=== PATIENT | female | born 2000 | race Caucasian/White ===

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

== ENCOUNTER → 2022-01-03 | Outpatient (CLI) | payer OTHER, MEDICAID, SELFPAY ==
[2022-01-03 12:34] LABS: Absolute Lymphocyte Count 2.61 X10^3/uL (0.83-4.51); Absolute Neutrophil Count 3.5 X10^3/uL (2.0-7.7); Basophil# 0.04 X10^3/uL; Basophil% 0.6 % (0-1); Eosinophil# 0.06 X10^3/uL; Eosinophils% 0.9 % (0-5); Hematocrit 35.8 % (37-47); Hemoglobin 11.8 g/dL (12.0-15.0); Lymphocyte # 2.61 X10^3/ul (0.83-4.51); Lymphocyte % 38.3 % (19-41); Mean Corpuscular Hgb 29.6 pg (27.0-32.0); Mean Corpuscular Volume 89.7 fL (81-99); Mean Platelet Vol. 10.1 fl (6.2-12.0); Monocyte% 8.8 % (0-10); NRBC Flagged by Analyzer 0 % (0-5); Neutrophil # 3.47 X10^3/uL (2.7-7.7); Platelet Count 306 K/mm3 (150-450); RBC Distribution Width CV 13.2 % (11.6-14.6); RBC Distribution Width SD 43.2 fl (35.1-43.9); Red Blood Count 3.99 M/mm3 (4.2-5.4); White Blood Count 6.8 K/mm3 (4.4-11.0)
[2022-01-03 13:03] LABS: Vitamin D,25 Hydroxy 23.3 ng/mL
[2022-01-03 13:04] LABS: Valproic Acid (Depakene) Level 17 ug/mL (50-100)
[2022-01-03 13:09] LABS: AST(SGOT) 16 U/L (15-37); Alanine Aminotransfer ALT/SGPT 37 U/L (13-56); Albumin, Serum 3.8 g/dL (3.2-5.0); Alkaline Phosphatase 90 U/L (45-117); Anion Gap 6 (5-15); BUN 11 mg/dL (7-18); BUN/Creat Ratio 14.1 RATIO (10-20); Bilirubin, Direct 0.12 mg/dL (0.00-0.30); Calcium,Total 8.5 mg/dL (8.5-10.1); Chloride 105 mmol/L (98-107); Cholesterol 188 mg/dL (200); Creatinine, Serum 0.78 mg/dL (0.55-1.02); EST Glomerular Filtration Rate 101 mL/min (>60); Est Glom Filt Rate - Afr Amer 122 mL/min (>60); Free T3 3.2 pg/mL (2.18-3.98); Globulin 3.9 g/dL (2.2-4.2); Glucose 80 mg/dL (74-106); High Density Lipoprotein 52 mg/dL; Potassium 3.1 mmol/L (3.5-5.1); Protein, Total 7.7 g/dL (6.4-8.2); Sodium Level 137 mmol/L (136-145); T4 Free Direct 0.95 ng/dL (0.76-1.46); Thyroid Stim Hormone (TSH) 6.03 uIU/mL (0.358-3.74); Triglycerides 94 mg/dL; Very Low Density Lipoprotein 19 mg/dL (5-40)
[2022-01-12 18:16] LABS: T3 Reverse 15.6 ng/dL (9.2-24.1)
== END | disposition home or self-care (01) ==
LOC: MTLAB 09:39
PROVIDERS: PCP Pediatrics; Referring Provider Psychiatry & Neurology Psychiatry; Visit Provider Psychiatry & Neurology Psychiatry
DX: F31.75 Bipolar disorder, in partial remission, most recent episode depressed (principal); Z79.899 Other long term (current) drug therapy
CPT/HCPCS: 36415; 80053; 80061; 80164; 82248; 82306; 84439; 84443; 84481; 84482; 85025

== ENCOUNTER → 2022-01-16 | Outpatient (CLI) | payer OTHER, MEDICAID, SELFPAY ==
[2022-01-16 18:15] LABS: Absolute Lymphocyte Count 1.51 X10^3/uL (0.83-4.51); Absolute Neutrophil Count 2.9 X10^3/uL (2.0-7.7); Basophil# 0.02 X10^3/uL; Basophil% 0.4 % (0-1); Eosinophil# 0.03 X10^3/uL; Eosinophils% 0.6 % (0-5); Hematocrit 35.9 % (37-47); Lymphocyte # 1.51 X10^3/ul (0.83-4.51); Lymphocyte % 31.1 % (19-41); Mean Corp Hgb Conc 33.4 g/dL (32-36); Mean Corpuscular Volume 89.8 fL (81-99); Mean Platelet Vol. 11.1 fl (6.2-12.0); Monocyte# 0.34 X10^3/uL; NRBC Flagged by Analyzer 0 % (0-5); Neutrophil # 2.94 X10^3/uL (2.7-7.7); Neutrophil % 60.7 % (47-70); Platelet Count 273 K/mm3 (150-450); RBC Distribution Width SD 42.8 fl (35.1-43.9); White Blood Count 4.9 K/mm3 (4.4-11.0)
[2022-01-16 18:35] LABS: Valproic Acid (Depakene) Level 46 ug/mL (50-100)
[2022-01-16 18:36] LABS: Vitamin D,25 Hydroxy 32.6 ng/mL
[2022-01-16 18:39] LABS: AST(SGOT) 13 U/L (15-37); Alanine Aminotransfer ALT/SGPT 13 U/L (13-56); Albumin, Serum 3.7 g/dL (3.2-5.0); Alkaline Phosphatase 77 U/L (45-117); Anion Gap 7 (5-15); BUN 9 mg/dL (7-18); BUN/Creat Ratio 12.5 RATIO (10-20); Bilirubin, Direct 0.12 mg/dL (0.00-0.30); Calcium,Total 8.7 mg/dL (8.5-10.1); Chloride 108 mmol/L (98-107); Cholesterol 159 mg/dL (200); Creatinine, Serum 0.72 mg/dL (0.55-1.02); EST Glomerular Filtration Rate 111 mL/min (>60); Est Glom Filt Rate - Afr Amer 134 mL/min (>60); Free T3 2.8 pg/mL (2.18-3.98); Globulin 3.7 g/dL (2.2-4.2); Glucose 82 mg/dL (74-106); High Density Lipoprotein 39 mg/dL; Protein, Total 7.4 g/dL (6.4-8.2); Sodium Level 139 mmol/L (136-145); T4 Free Direct 0.88 ng/dL (0.76-1.46); Thyroid Stim Hormone (TSH) 0.89 uIU/mL (0.358-3.74); Triglycerides 97 mg/dL; Very Low Density Lipoprotein 19 mg/dL (5-40)
== END | disposition home or self-care (01) ==
LOC: MTLAB 15:17
PROVIDERS: PCP Pediatrics; Referring Provider Psychiatry & Neurology Psychiatry; Visit Provider Psychiatry & Neurology Psychiatry
DX: Z79.899 Other long term (current) drug therapy (principal)
CPT/HCPCS: 36415; 80053; 80061; 80164; 82248; 82306; 84439; 84443; 84481; 84482; 85025

== ENCOUNTER → 2022-02-14 | Outpatient (CLI) | payer OTHER, MEDICAID, SELFPAY ==
[2022-02-14 18:13] LABS: Absolute Lymphocyte Count 1.78 X10^3/uL (0.83-4.51); Absolute Neutrophil Count 5.5 X10^3/uL (2.0-7.7); Basophil# 0.03 X10^3/uL; Basophil% 0.4 % (0-1); Eosinophil# 0.02 X10^3/uL; Eosinophils% 0.3 % (0-5); Hematocrit 37.7 % (37-47); Hemoglobin 12.9 g/dL (12.0-15.0); Lymphocyte # 1.78 X10^3/ul (0.83-4.51); Lymphocyte % 22.6 % (19-41); Mean Corp Hgb Conc 34.2 g/dL (32-36); Mean Corpuscular Hgb 30.5 pg (27.0-32.0); Mean Corpuscular Volume 89.1 fL (81-99); Mean Platelet Vol. 11.4 fl (6.2-12.0); Monocyte# 0.51 X10^3/uL; Monocyte% 6.5 % (0-10); NRBC Flagged by Analyzer 0 % (0-5); Neutrophil # 5.51 X10^3/uL (2.7-7.7); Neutrophil % 69.8 % (47-70); Platelet Count 250 K/mm3 (150-450); RBC Distribution Width CV 12.9 % (11.6-14.6); RBC Distribution Width SD 42.3 fl (35.1-43.9); Red Blood Count 4.23 M/mm3 (4.2-5.4); White Blood Count 7.9 K/mm3 (4.4-11.0)
[2022-02-14 18:57] LABS: ALB/GLOB Ratio 1.1 RATIO (0.9-2.4); AST(SGOT) 10 U/L (15-37); Alanine Aminotransfer ALT/SGPT 16 U/L (13-56); Albumin, Serum 4.3 g/dL (3.2-5.0); Alkaline Phosphatase 72 U/L (45-117); Anion Gap 7 (5-15); BUN 14 mg/dL (7-18); BUN/Creat Ratio 18.3 RATIO (10-20); Bilirubin, Direct 0.15 mg/dL (0.00-0.30); Calcium,Total 9.1 mg/dL (8.5-10.1); Chloride 106 mmol/L (98-107); Cholesterol 134 mg/dL (200); Creatinine, Serum 0.77 mg/dL (0.55-1.02); EST Glomerular Filtration Rate 103 mL/min (>60); Est Glom Filt Rate - Afr Amer 124 mL/min (>60); Free T3 3.5 pg/mL (2.18-3.98); Globulin 3.9 g/dL (2.2-4.2); Glucose 87 mg/dL (74-106); High Density Lipoprotein 41 mg/dL; Potassium 3.6 mmol/L (3.5-5.1); Protein, Total 8.2 g/dL (6.4-8.2); Sodium Level 136 mmol/L (136-145); T4 Free Direct 1.14 ng/dL (0.76-1.46); Thyroid Stim Hormone (TSH) 1.05 uIU/mL (0.358-3.74); Triglycerides 47 mg/dL; Very Low Density Lipoprotein 9 mg/dL (5-40)
[2022-02-14 19:00] LABS: Valproic Acid (Depakene) Level 54 ug/mL (50-100)
[2022-02-20 10:46] LABS: T3 Reverse 20.9 ng/dL (9.2-24.1)
== END | disposition home or self-care (01) ==
PROVIDERS: PCP Pediatrics; Referring Provider Psychiatry & Neurology Psychiatry; Visit Provider Psychiatry & Neurology Psychiatry
DX: F31.76 Bipolar disorder, in full remission, most recent episode depressed (principal); Z79.899 Other long term (current) drug therapy
CPT/HCPCS: 36415; 80053; 80061; 80164; 82248; 82306; 84439; 84443; 84481; 84482; 85025

== ENCOUNTER → 2022-03-21 | Outpatient (CLI) | payer OTHER, MEDICAID, SELFPAY ==
[2022-03-21 17:47] LABS: Absolute Lymphocyte Count 1.41 X10^3/uL (0.83-4.51); Absolute Neutrophil Count 3.5 X10^3/uL (2.0-7.7); Basophil# 0.02 X10^3/uL; Basophil% 0.4 % (0-1); Eosinophil# 0.03 X10^3/uL; Eosinophils% 0.6 % (0-5); Hematocrit 39.1 % (37-47); Hemoglobin 13.3 g/dL (12.0-15.0); Lymphocyte # 1.41 X10^3/ul (0.83-4.51); Lymphocyte % 26.1 % (19-41); Mean Corpuscular Hgb 30.6 pg (27.0-32.0); Mean Corpuscular Volume 89.9 fL (81-99); Mean Platelet Vol. 11.9 fl (6.2-12.0); Monocyte% 7.4 % (0-10); NRBC Flagged by Analyzer 0 % (0-5); Neutrophil # 3.52 X10^3/uL (2.7-7.7); Neutrophil % 65.1 % (47-70); Platelet Count 238 K/mm3 (150-450); RBC Distribution Width CV 13.2 % (11.6-14.6); RBC Distribution Width SD 43.3 fl (35.1-43.9); Red Blood Count 4.35 M/mm3 (4.2-5.4); White Blood Count 5.4 K/mm3 (4.4-11.0)
[2022-03-21 18:10] LABS: Valproic Acid (Depakene) Level 94 ug/mL (50-100); Vitamin D,25 Hydroxy 27.4 ng/mL
[2022-03-21 18:18] LABS: ALB/GLOB Ratio 0.9 RATIO (0.9-2.4); AST(SGOT) 8 U/L (15-37); Alanine Aminotransfer ALT/SGPT 13 U/L (13-56); Albumin, Serum 3.9 g/dL (3.2-5.0); Alkaline Phosphatase 66 U/L (45-117); Anion Gap 9 (5-15); BUN 12 mg/dL (7-18); BUN/Creat Ratio 16.4 RATIO (10-20); Bilirubin, Direct 0.17 mg/dL (0.00-0.30); Calcium,Total 8.7 mg/dL (8.5-10.1); Chloride 105 mmol/L (98-107); Cholesterol 166 mg/dL (200); Creatinine, Serum 0.73 mg/dL (0.55-1.02); EST Glomerular Filtration Rate 108 mL/min (>60); Est Glom Filt Rate - Afr Amer 131 mL/min (>60); Free T3 2.8 pg/mL (2.18-3.98); Globulin 4.3 g/dL (2.2-4.2); Glucose 72 mg/dL (74-106); High Density Lipoprotein 40 mg/dL; Potassium 3.8 mmol/L (3.5-5.1); Protein, Total 8.2 g/dL (6.4-8.2); Sodium Level 138 mmol/L (136-145); T4 Free Direct 0.83 ng/dL (0.76-1.46); Thyroid Stim Hormone (TSH) 0.87 uIU/mL (0.358-3.74); Triglycerides 101 mg/dL; Very Low Density Lipoprotein 20 mg/dL (5-40)
[2022-03-30 16:31] LABS: T3 Reverse 14.2 ng/dL (9.2-24.1)
== END | disposition home or self-care (01) ==
LOC: MTLAB 15:42
PROVIDERS: PCP Pediatrics; Referring Provider Psychiatry & Neurology Psychiatry; Visit Provider Psychiatry & Neurology Psychiatry
DX: F31.75 Bipolar disorder, in partial remission, most recent episode depressed (principal); Z79.899 Other long term (current) drug therapy
CPT/HCPCS: 36415; 80053; 80061; 80164; 82248; 82306; 84439; 84443; 84481; 84482; 85025

== ENCOUNTER 2024-02-04 08:00 | Outpatient (RCR) | payer OTHER, MEDICAID, SELFPAY ==
--- NOTE | 2024-02-04 09:00 | BH.COMM ---
Communication Note Communication with Client Communication Note: Met with therapist and completed initial paperwork, risk assessment, and psychosocial. Case discussed with plan to admit to IOP with dx F31.9
--- NOTE | 2024-02-04 09:05 | BH.SGPN.GN ---
Behaviors/Verbalizations/Mental Status: [] Eye contact is good. Motor activity is appropriate. Appearance is casual. Speech is Appropriate. Mood is depressed. Affect is flat. Thoughts are linear and logical. No evidence of psychosis. Reviewed daily check in sheet and no reports of suicidal ideations or intent. Client Response/Progress/Benefit: [] Pt participated when prompted. Attentive. Daily symptom tracker notes 3/5 for anxiety, 2/5 for depression, and 1/5 for self-harm urges. This was pt's first day in IOP. Pt states that she entered IOP to find ways to deal with my emotions better. When asked which emotions she has struggled with the most she states all of them. Peers welcomed her to the group and provided feedback for her first day which was beneficial. Limited progress as this was patient's first day in IOP. Will continue in IOP to maintain safety, stablize mood, increase healthy coping, and improve functioning. Narrative Note: []
--- NOTE | 2024-02-04 10:10 | BH.SGPN.GN ---
Behaviors/Verbalizations/Mental Status: []Pt alert and oriented, casually dressed and groomed. Eye contact fair. Motor activity appropriate. Speech within normal limits. Affect congruent, mood, anxious. Thoughts linear, logical, no signs of hallucinations or delusions. Client Response/Progress/Benefit: [] Pt connected with topic of anxiety and participated throughout, providing input and taking notes. Participated throughout interactive discussion defining anxiety and identifying cognitive and physiological symptoms of anxiety. Group discussed how anxiety can prevent them from trying new things. Pt identified their physical signs of anxiety as: nausea, leg shaking, and heart racing. Pt identified safety behaviors as: isolate to avoid, cancel plans, and distance self from others. Benefited from increased awareness and insight on anxiety and its impact. Pt will continue IOP tx to improve daily functioning, increase use of healthy coping skills, and prevent decompensation.
--- NOTE | 2024-02-04 11:15 | BH.SGPN.GN ---
Behaviors/Verbalizations/Mental Status: []Pt alert and oriented, neatly dressed and groomed. Eye contact good. Motor activity appropriate. Speech within normal limits. Affect congruent, mood anxious. Thoughts linear, logical, no signs of hallucinations or delusions. Client Response/Progress/Benefit: []Pt was an active participant AEB pt providing input and listening attentively to peers. Attentive during psychoeducation on mindfulness coping skills and their impact on reducing anxiety and improving overall mental health wellness. Group was able to identify self-soothing and mind-based coping skills which included: 5-senses, meditation, deep breathing, TIPP, thought challenging, and progressive muscle relaxation. Pt also participated with peers in practicing mindfulness skills in session including deep breathing and PMR. Pt would like to work on using thoughts are thoughts not facts to manage anxiety. Appeared to benefit from increasing repertoire of anxiety reduction skills. First day of IOP tx. Pt will continue in IOP tx to prevent decompensation, improve mood stability, and gain healthy coping skills. ? Narrative Note: []
--- NOTE | 2024-02-04 16:38 | BH.MTP_ITS ---
Master Treatment Plan Patient Information Program Physician:: Dr. Delacruz Primary Therapist:: Martha Yeh, [facility] Psychiatric Diagnoses Psychiatric Diagnoses:: 1. Bipolar disorder, NOS 2. Generalized anxiety disorder 3. Ecstasy and cocaine use disorder (sober since January 02, 2024) 4. Alcohol use disorder (sober x 2 weeks) 5. Marijuana use disorder Diagnosis Code(s):: F31.9 Estimated LOS Estimated LOS (in weeks):: 6 Problem/Goal #1 Problem/Goal #1 Stated Goal:: Client will increase mood stability and decrease depressive symptoms, apathy, and low motivation due to Bipolar NOS through Intensive Outpatient Program. Description of Barriers: Potential barriers include: marijuana use, newly sober from cocaine and ecstasy, negative thoughts, relationship stressors, and low motivation. Functional Impact: The patient is a 23-year-old single female with a history of possible bipolar disorder and polysubstance use who was referred to the [facility] behavioral health IOP by her outpatient psychiatric provider for erratic moods, depression, suicidal ideation. The patient voluntarily admitted herself after going to the emergency room with her mother on January 01 to January 05, 2024 to [facility] psychiatric unit. Patient currently lives alone since October 2023 and she is not working currently. 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 She has a history of stressors including a recent break-up with a girlfriend in September 2023 and they are still talking but have decided to not get back together. She has had the symptoms for several mon ths and they include her mood changing multiple times a day and the mood changes generally last hours only. At times she gets a somewhat elevated mood which is also associated with getting a lot done and impulsivity and reckless behaviors. She endorses sadness, crying spells, hopelessness, worthlessness, anhedonia, increased sleep in the last week or so up to 12 hours overnight and a 4-hour nap the other day. She did have suicidal ideation several weeks ago when she went to the hospital voluntarily. Objectives Objective #1: Stated Objective: Client will learn and utilize 2-3 healthy coping strategies to manage depressive symptoms. Interventions: Therapist will utilize CBT techniques to assist client with understanding the connection between thoughts, feelings and behaviors. Education will be provided on behavioral activation. Therapist will assist client in learning internal coping strategies to manage depressive symptoms, along with helping client identify triggers. Discharge Criteria: Client will have achieved this goal when can verbalize and has practiced at least 2 healthy coping strategies that successfully manage depressive symptoms. Target Date: 03/18/24 Review Date: 03/04/24 Objective #2: Stated Objective: Client will identify 2-3 triggers and 2-3 coping skills to reduce depressive thinking. Interventions: Therapist will help client identify her triggers and teach client coping strategies to effectively cope with depressive symptoms. Discharge Criteria: Client will have achieved this goal when can identify at least 2 triggers, verbalize two healthy coping strategies, and report improved daily functioning. Target Date: 03/18/24 Review Date: 03/04/24 Problem/Goal #2 Problem/Goal #2 Stated Goal:: Client will reduce overall frequency, intensity, and duration of the anxiety so that daily functioning is not impaired. Description of Barriers: Potential barriers include: marijuana use, newly sober from cocaine and ecstasy, negative thoughts, relationship stressors, and low motivation. Functional Impact: The patient is a 23-year-old single female with a history of possible bipolar disorder and polysubstance use who was referred to the [facility] behavioral health IOP by her outpatient psychiatric provider for erratic moods, depression, suicidal ideation. The patient voluntarily admitted herself after going to the emergency room with her mother on January 01 to January 05, 2024 to [facility] psychiatric unit. Patient currently lives alone since October 2023 and she is not working currently. 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 She has a history of stressors including a recent break-up with a girlfriend in September 2023 and they are still talking but have decided to not get back together. She has had the symptoms for several months and they include her mood changing multiple times a day and the mood changes generally last hours only. At times she gets a somewhat elevated mood which is also associated with getting a lot done and impulsivity and reckless behaviors. She endorses sadness, crying spells, hopelessness, worthlessness, anhedonia, increased sleep in the last week or so up to 12 hours overnight and a 4-hour nap the other day. She did have suicidal ideation several weeks ago when she went to the hospital voluntarily. Objectives Objective #1: Stated Objective: Client will learn and implement 2-3 calming skills to reduce overall anxiety and manage anxiety symptoms. Interventions: Therapist and group sessions will help client identify physiological warning signs of anxiety, increase awareness of thoughts that increase anxiety, and identify behaviors that reinforce anxious symptoms. Group and individual counseling will teach client calming skills to help manage anxious symptoms. Discharge Criteria: Client will have achieved this goal when can verbalize at least 2 calming skills and reports skills successfully help reduce anxious symptoms. Objective #2: Stated Objective: Pt will decrease anxious symptoms AEB pt?s score on the DSM 5 cross-cutting measure improve pt?s daily functioning. Interventions: Through groups and individual therapy, pt will be provided education about anxiety?s impact on body and common physiological reaction to anxiety. Therapist will teach pt appropriate breathing techniques and build healthy coping skills to manage daily anxieties. Discharge Criteria: Pt will have met this goal when pt?s score on the DSM 5 cross cutting measure for anxiety has been decreased and per pt?s report daily functioning has improved.
--- NOTE | 2024-02-06 12:00 | BH.NA ---
Physical Data Vital Signs Pulse Rate: 60 Blood Pressure: 137/80 Height/Weight Height: 1.78 m Weight:: 81.647 kg Weight in Pounds: 180.0 lbs Current Medication Compliance Medication Compliance Do you take your medication as prescribed?: Yes Nutritional History Appetite Nutritional Instructions: Describe your appetite:: Fair Additional nutritional information:: Client denies change in weight, but states her appetite varies. Functional Assessment Sleep Pattern Describe any problems with sleeping: Client states she sleeps between 8-12 hours per night. Sensory/Communication Assess Communication Problems Do you have difficulty understanding what people are saying?: No Medical Problems/History Pain Assessment Do you have acute or chronic pain?: Yes (acute, left ankle sprain) Additional History Additional comments:: Currently has a left ankle sprain from a fall, wearing a boot Surgical History Surgical History Have you had any surgeries? If so, list type and date:: Yes (ear tubes) Substance Abuse Substance Abuse Please describe substance abuse in the last 30 days:: Client states she had been drinking 1-2 beers per day, but states over the last 2 weeks she has only had alcohol 3-4 days per week. Client vapes nicotine daily. Client states she uses marijuana 3-4 times per day, but states this is a decrease in her usual use. Client has a history of cocaine and esctasy use. Client states she drinks 4 cans of pop per day. Mental Status Summary Mental Status Significant Findings/Observations on Appearance and Mood:: Client is alert and oriented x 4. Client is casually groomed. Client is cooperative with assessment. Client makes good eye contact. Client's voice has normal rate and volume. Client has full affect. Client makes logical associations and has normal processing. Client denies delusions/hallucinations. Client denies active SI, but states she has had passing feelings of wishing I could disappear. Suicide Assessment Suicidal Ideation Are you currently or have you been suicidal in the past?: Yes Suicidal Intentional Rating Scale (SIRS): Suicidal thoughts (past) (denies current) Physician Notification Past Psychiatric History MH Treatment Hx Past Psychiatric Medications:: Lamictal (rash), Seroquel, Effexor, Pristiq, Zoloft Age of first mental health symptoms: Client states she was first on Zoloft for mental health around age 18, but changed medications around age 19 or 20 due to being diagnosed with bipolar. Describe (age, circumstance, etc) any past hospitalizations: 01/02/24 at [facility] due to SI Current providers for mental health treatment (counselor, psychiatrist, case management manager, etc.): Callie Shipley CNP at [facility] Fall Risk Assessment Age Age: Less than 60 Mental Status Mental Status: Willing & able to ask for assistance when needed Physical Status Physical Status: No problems Impairments Impairments: None Elimination Elimination: Continent AND independent Gait or Balance Gait or Balance: Walks independently Hx of Falls History of falls in the past 6 months: No known history Medications/Substances Psychotropics:: Antipsychotics and Antihistamines (e.g. Benadryl) Medications/substances used within the past 24 hours or ordered to administer: 1-2 of the medications/substances listed above Total Score Total Points:: 1 RN Summary of Impressions Impressions Recommendations Impressions: Psychiatric Issues: 1. Bipolar disorder, NOS 2. Generalized anxiety disorder 3. Ecstasy and cocaine use disorder (sober since January 02, 2024) 4. Alcohol use disorder (sober x 2 weeks) 5. Marijuana use disorder 6. Primary support and work issues Level of Care How do the client's current symptoms and functional deficits support need for this level of care?: Client was referred to IOP by outpatient psychiatry provider due to erratic moods and recent suicidal ideations. Client was hospitalized in December 2023 due to SI. Client states I wanted to get help before my mental health got worse. Client had a recent break up that has been a stressor. Client reports panic attacks, reporting diaphoresis and racing thoughts. IOP will promote gains and prevent further decompensation while providing social support and skills training.
[2024-02-06 12:20] VITALS: BP 137/80; PULSE 60
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
--- NOTE | 2024-02-06 12:56 | BH.DR.ITP ---
Initial Treatment Plan Patient Information Visit Information: ADMISSION DATE: EXPECTED LOS: 4-6 weeks Problems/Symptoms Problem #1:: Mood instability Symptom:: Sadness, hopelessness, worthlessness, anhedonia, biological disruption of sleep, low energy, decreased concentration, recent suicidal ideation, impulsivity Problem #2:: Anxiety Symptom:: Worry, panic attacks, rumination
--- NOTE | 2024-02-11 10:12 | BH.COMM ---
Communication Note Communication with Client Communication Note: Client no showed/no called. This therapist attempted to reach client to check-in, however she did not answer and her voicemail box is not set up.
--- NOTE | 2024-02-12 09:00 | BH.SGPN.GN ---
Behaviors/Verbalizations/Mental Status: [] Eye contact is poor. Motor activity is restless. Appearance is casual. Speech is Appropriate. Mood is depressed. Affect is flat. Thoughts are linear and logical. No evidence of psychosis. Reviewed daily check in sheet and pt reports 3/5 for suicidal thoughts and 1/5 for intent. Therapist with meet with pt. Client Response/Progress/Benefit: [] Limited participation in group discussions. Distracted. Daily symptom tracker notes 3/5 for depression and anxiety. Declined to share. No progress noted. Limited benefit from group as she struggled with being attentive and was not engaged in group discussions. Will continue in IOP to maintain safety, stabilize mood, increase healthy coping, and prevent decompensation/re-admission to psych unit. Narrative Note: []
--- NOTE | 2024-02-12 10:10 | BH.SGPN.GN ---
Addendum entered and electronically signed by Kylee Rico LSW 03/10/24 14:46: Behaviors/Verbalizations/Mental Status: [] Eye contact is good. Motor activity is appropriate. Appearance is casual. Speech is Appropriate. Mood is content. Affect is congruent. Thoughts are linear and logical. No evidence of psychosis. Client Response/Progress/Benefit: [] Pt did well to participate in activity and was engaged and attentive during psychoeducation and interactive discussion on coping skills, why people use unhealthy coping skills, how to replace unhealthy coping skills, and internal vs external coping skills. Attentive as peers came up with list of negative coping skills including not asking for help, avoidance, isolating, sleeping, shopping, substance use, and several others. Pt reports often turning to avoidance or numbing with substances which helps short-term but results in increased depression long-term. Group discussed the effects of how negative coping skills can impact mental health in a negative way. Benefited from increased understanding of unhealthy coping skills and the need for developing healthy internal and external coping skills. Will continue in IOP to prevent decompensation, increase health coping skills, and improve functioning. Original Note: Behaviors/Verbalizations/Mental Status: [] Client Response/Progress/Benefit: [] Narrative Note: []
--- NOTE | 2024-02-12 10:10 | BH.MDN ---
Multi-Disciplinary Note Note 60-min Individual: Time Started:: 10:10 Date: 02/12/24 Purpose of session/treatment goals addressed:: Pt requested to speak with a therapist this AM due to grief related to recent break-up. Eye Contact:: Good Motor Activity:: Appropriate Appearance:: Casual Speech:: Appropriate Mood:: Depressed Affect:: Congruent Thoughts:: Linear, Logical and No evidence of hallucinations/delusions noted Staff Interventions:: CBT techniques, rapport building and goal setting Client Response:: Pt explained that she has been going through a relationship break-up since September 2022. Pt broke up with her gf in September. Guilt over her actions during the relationship and at this point regrets breaking up with GF. Last week (02/08/24) her GF came over to the house with her new BF to pick pulling machine tender her belongings. This event lead to mental health decompensation with increased desire to get her back. Thoughts along the lines of she was the best nobody will love me like her. Pt is communicating several times throughout the day with her ex often resulting in arguments and saying things we both don't mean. According to pt there are mixed messages regarding their future together which leads to uncertainty. Risks/Concerns:: Pt indicated a 3/5 for suicidal thoughts or desire to not exist on her daily symptom tracker, however she denies suicidal ideations, plan, or intent to this therapist. Able to contract for safety. Future-oriented. Protective factors reported. No access to firearms. She reports I don't' want to I just want a break. I want the world to just stop moving and to take a breath. Aware of crisis numbers. Does not present as imminent danger to herself. Progress Toward Goals/Plan:: Pt was receptive during session. Insight that excessive communication with ex is exacerbating her mental health and causing more conflict with ex. Is willing to decrease amount of texts throughout the day. Pt's mother and friends believe that her relationship was unhealthy prior to the break-up and even after. Pt admits to trouble letting go in relationships in the past. Along with grief related to relationship pt continues to report unhealthy coping skills using substances to self-medicate. We identified the negative cycle this is creating which slows down her ability to process and move through emotions. Identified affirmations and healthy coping skills to utilize in the immediate future. Strongly encouraged her to consistently attend IOP as this program would be beneficial in learning healthy coping, boundary-setting, effective communicate, and healthy relationships. Time Stopped:: 11:11
--- NOTE | 2024-02-15 09:00 | BH.SGPN.GN ---
Behaviors/Verbalizations/Mental Status: [] Pt alert and oriented, neatly dressed and groomed. Eye contact good. Motor activity appropriate. Speech within normal limits. Affect congruent, mood euthymic. Thoughts linear, logical, no signs of hallucinations or delusions. Reviewed pt?s symptom tracker, no risk for suicidal ideation, plan, or intent 02/15/24. Pt's self-report for SI is within pt's baseline. Client Response/Progress/Benefit: []Pt responded somewhat well to session, engaged and listening to peers, but declining to share. Pt recently started IOP tx and she has not been consistent with attendance, so pt being here today is progress. Pt appeared to benefit from hearing peers share and not isolating today. Pt will continue IOP tx to prevent decompensation, improve daily functioning, and reduce use of unhealthy coping skills. Narrative Note: []
--- NOTE | 2024-02-15 10:15 | BH.SGPN.GN ---
Behaviors/Verbalizations/Mental Status: []Patient was alert and oriented, casually dressed and groomed. Eye contact was good, motor activity normal, speech within normal limits. Affect congruent, mood dysthymic. Thoughts linear, logical, no signs of hallucinations or delusion Client Response/Progress/Benefit: []Pt participated in the group discussions AEB providing input and taking notes. Attentive during psychoeducation Goal Setting. Participated during the discussion on common barriers and pt identified some personal barriers as being inconsistent, low motivation, and negative self-talk. Group also identified benefits of goals as sense of purpose, improved self-confidence, more motivation for other goals, and improved mental health. Benefited from increased awareness of mental health benefits of goals as well as psychoeducation on SMART goal criteria. Will continue in IOP to improve mood stability, reduce negative thinking patterns, and improve distress tolerance skills. ? Narrative Note: []
--- NOTE | 2024-02-15 11:15 | BH.SGPN.GN ---
Behaviors/Verbalizations/Mental Status: []Pt alert and oriented, casually dressed and groomed. Eye contact fair. Motor activity appropriate. Speech within normal limits. Affect congruent, mood euthymic. Thoughts linear, logical, no signs of hallucinations or delusions. Client Response/Progress/Benefit: [] Pt was engaged during discussion and willing to complete the worksheet challenging them to develop a personal SMART goal. Pt chose the goal of putting away 1 load of laundry everyday. Stated this will help her feel less stressed and more accomplished if completes this goal. Pt stated feeling overwhelmed as a potential barrier. Identified solution as breaking task into smaller pieces and having a reward system upon completion of a step. Benefited from this group by developing a short-term SMART goal related to mental health. Will continue IOP tx to improve distress tolerance, increase consistent use of healthy coping skills, and prevent decompensation.
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
== END 2024-02-20 23:59 ==
LOC: BHIOP 08:00
PROVIDERS: Referring Provider Psychiatry & Neurology Psychiatry; Visit Provider Psychiatry & Neurology Psychiatry
DX: F31.9 Bipolar disorder, unspecified (principal); F41.1 Generalized anxiety disorder; F10.90 Alcohol use, unspecified, uncomplicated; F12.90 Cannabis use, unspecified, uncomplicated; F14.90 Cocaine use, unspecified, uncomplicated; Z79.899 Other long term (current) drug therapy
CPT/HCPCS: S9480; 90837; 90853

== ENCOUNTER 2024-02-04 23:06 | Emergency (ER) | payer OTHER, MEDICAID, SELFPAY ==
[2024-02-04 23:06] VITALS: BP 125/90; PULSE 81; RESP 16; TEMP 36.6; O2SAT 100; BMI 12.4
--- NOTE | 2024-02-04 23:11 | RAD_ITS ---
EXAM: XR LEFT FOOT COMPLETE, 3 OR MORE VIEWS CLINICAL INDICATION: fall TECHNIQUE: Frontal, lateral and oblique views of the left foot. COMPARISON: No relevant prior studies available. FINDINGS: BONES/JOINTS: Unremarkable. No acute fracture. No subluxation. Normal alignment. Preservation of the joint space. No sclerotic or destructive changes observed. SOFT TISSUES: Unremarkable. No soft tissue swelling or gas. No radiopaque foreign body. RAD/Foot min 3 Views IMPRESSION: Negative left foot x-rays. Electronically Signed: Juan Soliz MD at 23:48 EDT ,
[2024-02-04] MEDS: HYDROcodone Bitartrate/Apap 5/325 Tablet PO (23:58)
--- NOTE | 2024-02-05 00:05 | EX.ED.DYSGE1 ---
HPI History of Present Illness Chief Complaint: Lower Extremity Injury Informant: patient and parent Narrative Narrative: Patient is a 23-year-old female with past medical history of bipolar disorder. She states roughly 1 to 2 hours ago she was walking down steps of an outside porch when she missed the last step and rolled her left foot/ankle. She denies striking her head or any loss of consciousness. She states she has had swelling along the lateral aspect of the left foot with difficulty walking since the fall and with concern for fracture was brought in for evaluation. [facility] Medical History (Updated 02/05/24 @ 03:[address] Jed Pratt, DO) Anxiety and depression Hx of bipolar disorder Home Medications ?Medication ?Instructions ?Recorded ?Last Taken ?Type aripiprazole 10 mg tablet (Abilify) 10 mg PO DAILY 02/04/24 Unknown History hydroxyzine HCl 50 mg tablet 50 mg PO BID 02/04/24 Unknown History Allergy/AdvReac Type Severity Reaction Status Date / Time lamotrigine (From Lamictal) Allergy Rash Verified 02/04/24 23:08 Social History (Updated 02/05/19 @ 11:15 by Will MORALES, PA) Smoking Status: Current every day smoker tobacco type: cigarettes and e-cigarettes ROS ROS ED Constitutional Constitutional ED: Denies chills or fever(s) Eyes Eyes: Denies blurry vision or change in vision ENT ENT ED: Denies sore throat Cardiovascular Cardiovascular: Reports other Details: Negative syncope ; Denies chest pain Respiratory/Chest Respiratory/Chest: Denies cough or dyspnea Gastrointestinal Gastrointestinal: Denies abdominal pain, diarrhea, nausea or vomiting Genitourinary Genitourinary ED: Denies dysuria Musculoskeletal Musculoskeletal: Reports other Details: Positive left foot pain ; Denies back pain or neck pain Integumentary Reports Abrasions Neurologic Neurologic: Denies headache(s), paresthesias or weakness Hematologic/Lymphatic Hematologic/Lymphatic: Denies easy bleeding or easy bruising EXAM Physical Exam Const Vital Signs: 02/04/24 23:06 02/05/24 00:20 Temperature 97.8 F 97.2 F L Temperature Source Temporal Pulse Rate 81 74 Respiratory Rate 16 18 Blood Pressure 125/90 H 120/73 Blood Pressure Mean 101 88 Pulse Ox 100 98 Positive well nourished and well developed General Appearance ED: well developed HEENT HEENT Narrative: Normocephalic atraumatic Eyes PERRL and EOMs intact bilaterally Neck supple Neck Narrative: No bony deformity or step-off of the cervical spine no midline tenderness to palpation Chest Wall palpation of chest normal Resp normal respiratory effort and clear to auscultation bilaterally Cardio regular rate and regular rhythm Back/Spine Back/Spine Narrative: No bony deformity or step-off of the thoracic or lumbar spine no midline tenderness to palpation Extremity Extremity Narrative: Pelvis is stable there is no shortening or external rotation of either lower extremity. Left lower extremity is neurovascularly intact. There is soft tissue swelling and ecchymosis along the dorsal and lateral aspect of the left foot near the base of the fifth metatarsal. There is pain to palpation at this site. Ankle ligaments are stable and Achilles tendon is intact. No subungual hematoma noted. Remainder the exam is normal Neuro oriented x3, CN's II-XII intact bilaterally and no sensory deficits noted Sensorium / Orientation: alert Psych mental status grossly normal Skin Skin Narrative: Ecchymosis with soft tissue swelling of the left foot as documented above MDM MDM MDM Narrative Medical decision making narrative: Patient presented to the ER with stable vitals and reported a mechanical fall. Therefore I felt no need for cardiac or syncope workup. Also patient did not strike her head or have any loss of consciousness so there is no need for CT of the head. An x-ray of the foot was obtained secondary to her history of trauma and pain in order to check for potential fracture versus dislocation versus contusion. X-ray revealed no acute fracture or dislocation indicating patient has a foot contusion and ankle sprain. She be placed in a walking boot to help with stabilization and ambulation but as there is no signs of ligamentous or tendon injury and no signs of acute fracture she is otherwise safe for discharge History & Record Review Discussion w/independent historian: Patient and Family Radiography Diagnostic Testing: Clinical Impression(s) from Imaging Studies Foot X-Ray 02/04/24 23:11 IMPRESSION: Negative left foot x-rays. Electronically Signed: Juan Soliz MD at 23:48 EDT , X-ray of the left foot as interpreted by the emergency medicine physician reveals no acute fracture or dislocation or retained foreign body Discharge Plan Triage Chief Complaint: Lower Extremity Injury ED Provider: Jed Pratt Dx/Rx/DC Orders Clinical Impression: Contusion of ankle or foot, left, Left ankle sprain, Bipolar disorder Instructions: ED Foot Contusion, ED Ankle Sprain (Adult) Prescriptions: No Action hydroxyzine HCl 50 mg tablet 50 mg PO BID aripiprazole [Abilify] 10 mg tablet 10 mg PO DAILY Primary Care Provider: Care Physician,No Primary Referrals: Care Physician,No Primary [Primary Care Provider] - Activity Restrictions/Additional Instructions: Please wear your walking boot for stabilization and continue to take Tylenol and/or Motrin for pain control. Return to the ER should you have any further concerns Print Language: Georgian Disposition Disposition: Home, Self Care Discharge Date/Time: 02/05/24 00:23
[2024-02-05 00:20] VITALS: BP 120/73; PULSE 74; RESP 18; TEMP 36.2; O2SAT 98
== END 2024-02-05 00:23 | disposition home or self-care (01) ==
PROVIDERS: Emergency Provider Emergency Medicine; Visit Provider Emergency Medicine
DX: S90.02XA Contusion of left ankle, initial encounter (principal); F31.9 Bipolar disorder, unspecified; F17.210 Nicotine dependence, cigarettes, uncomplicated; R26.2 Difficulty in walking, not elsewhere classified; W17.89XA Other fall from one level to another, initial encounter; S93.402A Sprain of unspecified ligament of left ankle, initial encounter
CPT/HCPCS: 73630; 99283

== ENCOUNTER 2024-02-21 14:44 | Outpatient (RCR) | payer OTHER, MEDICAID, SELFPAY ==
[2024-02-21 00:27] VITALS: BP 137/80; PULSE 60
--- NOTE | 2024-02-21 09:02 | BH.SGPN.GN ---
Behaviors/Verbalizations/Mental Status: [] Client alert and oriented, casual appearance. Eye contact fair. Motor activity appropriate. Speech within normal limits. Affect congruent, mood anxious. Thoughts linear, logical, no signs of hallucinations or delusions. Reviewed client's symptom tracker, no risk for suicidal ideation, plan, or intent. Client Response/Progress/Benefit: [] Client responded well to session AEB listening to others and sharing thoughts/feelings. Client reported she had second day of work yesterday and it went well. Client reported she's not excited about this job, but is happy she will have more structure during her week. Client stated current stressor is relationship issues. Appeared to benefit from support from peers. Will continue IOP tx to increase consistent use of healthy coping skills, challenge distortions, and prevent decompensation.
--- NOTE | 2024-02-21 10:10 | BH.SGPN.GN ---
Behaviors/Verbalizations/Mental Status: [] Eye contact is good. Motor activity is appropriate. Appearance is casual. Speech is Appropriate. Mood is depressed. Affect is flat. Thoughts are linear and logical. No evidence of psychosis. Client Response/Progress/Benefit: [] Pt was an engaged participant AEB listening attentively to others, taking notes, and providing feedback in small group discussions. Attentive during psychoeducation AEB by note taking and providing some input. Pt worked along with peers in small groups to define inappropriate guilt and appropriate guilt. Interactive discussion on examples of both inappropriate and appropriate guilt. Pt able to connect impact inappropriate guilt can have on MH. Benefited from increased awareness of guilt and the differences between appropriate and inappropriate guilt. Plan is to maintain safety, increase healthy coping, prevent decompensation, and improve functioning. Narrative Note: []
--- NOTE | 2024-02-21 11:15 | BH.SGPN.GN ---
Behaviors/Verbalizations/Mental Status: []Pt alert and oriented, casually dressed and groomed. Eye contact fair to good. Motor activity appropriate. Speech within normal limits. Affect congruent, mood depressed. Thoughts linear, logical, no signs of hallucinations or delusions. Client Response/Progress/Benefit: []Pt engaged participant AEB listening attentively to others and providing input throughout group. Pt worked within their small group to identify strategies to manage inappropriate guilt. Identified a personal example of inappropriate guilt as ?Not giving a friend a ride home from work because they forgot to reach out and ask? Insight cues a feeling of ?self-blame? and fear of disappointing them.? Pt wants to work on combatting inappropriate guilt by being more self-compassionate and practicing self-forgiveness. Pt seemed to benefit from learning about strategies to manage appropriate and inappropriate guilt. Pt will continue IOP tx to prevent decompensation, improve daily functioning, and increase mood stability. ? Narrative Note: []
--- NOTE | 2024-02-22 10:25 | BH.SGPN.GN ---
Behaviors/Verbalizations/Mental Status: []Pt alert and oriented, casually dressed and groomed. Eye contact good. Motor activity appropriate. Speech within normal limits. Affect congruent, mood content. Thoughts linear, logical, no signs of hallucinations or delusions. Client Response/Progress/Benefit: [] Pt took notes and contributed some throughout group discussion and interactive activity. Attentive during psychoeducation on fixed mindset and how a fixed mindset can impact mental health, resilience, and relationships. Participated during the interactive group discussion on fixed mindset in which group verbalized their current fixed mindsets and how they affect their mental health. Pt shared common fixed mindset thoughts they have which included I?ll never be good enough?, ?I'll always feel this way?, and ?Things can't change?. These thoughts lead to giving up or not trying, low self-esteem, and self-sabbotage. Pt benefited from increased awareness of growth mindset and fixed thoughts and how fixed thoughts impact their mental health. Will continue IOP tx to prevent decompensation, improve mood stability, and gain healthy coping skills. Narrative Note: []
--- NOTE | 2024-02-22 11:15 | BH.SGPN.GN ---
Behaviors/Verbalizations/Mental Status: []Pt alert and oriented, casually dressed and groomed. Eye contact fair. Motor activity appropriate. Speech within normal limits. Affect congruent, mood euthymic, anxious. Thoughts linear, logical, no signs of hallucinations or delusions. Client Response/Progress/Benefit: [] Pt was an active participant during activity and discussion. Pt did well to remain attentive and participate as group worked on identifying characteristics and benefits of adopting a growth mindset. Worked with fellow participants in reframing the example fixed thoughts into growth mindset thoughts. Pt worked on changing own fixed thought and reframed the thought to ?I can feel good about myself one day by using my skills and applying them to my life. Pt appeared to benefit from challenging own thoughts and engaging in the activity. Pt will continue IOP tx to improve use of healthy coping skills, challenge distorted thoughts, and prevent decompensation. Progress could be impacted by inconsistent treatment attendance.
--- NOTE | 2024-02-22 13:57 | BH.MDN ---
Multi-Disciplinary Note Note 45-min Individual: Time Started:: 09:00 Date: 02/22/24 Time Stopped:: 09:50
--- NOTE | 2024-02-22 14:31 | BH.MDN ---
Multi-Disciplinary Note Note 45-min Individual: Time Started:: 12:15 Date: 02/22/24 Purpose of session/treatment goals addressed:: Purpose of session was to address goals 1 and 2 from MTP. Eye Contact:: Good Motor Activity:: Appropriate Appearance:: Casual Speech:: Appropriate Mood:: Euthymic Affect:: Congruent Thoughts:: Linear, Logical and No evidence of hallucinations/delusions noted Staff Interventions:: thought challenging, motivational interviewing, CBT techniques, mindfulness skills, rapport building, strengths perspective, goal setting (Homework: complete 3 loads of laundry and practice breathing/ground tools) and taught coping skills (belly breathing and grounding tools - practiced in session and provided handouts) Client Response:: Client reports she is feeling better emotionally this week and is slow they have been returning to more of herself. Client reported she has been able to maintain sobriety from cocaine and ecstasy for a week. Client stated she does want to maintain sobriety from substances because she recognizes it does not help her mental health resolve any of the issues. Client reported she has been doing better with setting more boundaries for herself to not respond as frequently with her ex-girlfriend. Client stated she did have a conversation with her ex that she cannot really be available like she used to be since the ex has moved on and cannot expect client to constantly still be there for her. Client reported she she has started to hang out and talk to one of her first exes. Client admitted her mood is likely boosted and she is doing better since she has a distraction with a potential new relationship. Client stated she has seen this individual for a couple hours every day in the last week. Client therapist reviewed what a healthy relationship looks like versus unhealthy and abusive relationships. Discussed importance of focusing on bettering herself so that she can enter a new relationship in a healthier mindset. Client agreed she struggles with taking on a partners interest, hobbies, and values. Client stated in the past she has felt like she is not who she is because she often became what her partner was. Client stated she does recognize now the importance of couples having her own independence and not constantly being with each other. Therapist provided psychoeducation and taught client about belly breathing and grounding tools to help with managing anxiety and difficult emotions. Client states she has attempted to use breathing skills in the past but has not found that to be useful. Client overall receptive to trying belly breathing and grounding tools again. Therapist encouraged client to either use belly breathing or grounding tool before she uses marijuana as her coping skill. Client struggled with initially identifying a goal for the weekend because she does not really know what she wants to accomplish per her report. Client admitted she is somewhat attending IOP to appease other people in her life but can recognize that she is not completely happy with how her life has been going into utilize some more support. Therapist encouraged client to self reflect on what may be some reasons for her to be in IOP and what she would like to accomplish for her not just for others. Risks/Concerns:: Denies suicidal ideation, plan, intention. Future oriented. Progress Toward Goals/Plan:: Progress variable. Client has struggled with consistent attendance to IOP sessions. Client had reported in last individual session that she had relapsed 5 of the days since starting IOP. Client has reported being sober from cocaine and ecstasy for 1 week. Client continues to use marijuana but reports no desire to stop smoking but does want to limit her use to just social. Client does report recent mood boost which she does attribute to send hanging out with a new woman. Discussed importance of client attending IOP week consistently and if she does not attend at least 2 times a week she will be discharged from program. Client expresses understanding of this. Plan is for client to continue IOP to maintain sobriety, challenge distortions, and prevent decompensation. Time Stopped:: 12:50
--- NOTE | 2024-02-27 10:34 | BH.COMM_ITS ---
Communication Note Communication with Client Communication Note: Pt no showed/no called on Sunday02/26/24 and no showed/no called on 02/27/24. This singer songwriter called and left voicemail that if pt does not attend and Sunday this week she will be discharged from [facility] due to inconsistent attendance. This has previously been reviewed with pt and is in the cancellation policy she had signed on her first day in [facility].
--- NOTE | 2024-02-27 10:34 | BH.COMM ---
Communication Note Communication with Client Communication Note: Pt no showed/no called on Sunday02/26/24 and no showed/no called on 02/27/24. This racebook writer called and left voicemail that if pt does not attend and Sunday this week she will be discharged from [facility] due to inconsistent attendance. This has previously been reviewed with pt and is in the cancellation policy she had signed on her first day in [facility].
--- NOTE | 2024-02-28 16:22 | BH.DS_ITS ---
Discharge Summary Demographics Date of Admission:: 02/04/24 Discharge Date: 02/28/24 Presenting Problems at Admission:: The patient is a 23-year-old single female with a history of possible bipolar disorder and polysubstance use who was referred to the [facility] behavioral health IOP by her outpatient psychiatric provider for erratic moods, depression, suicidal ideation. The patient voluntarily admitted herself after going to the emergency room with her mother on January 01 to January 05, 2024 to [facility] psychiatric unit. Patient currently lives alone since October 2023 and she is not working currently. 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 She has a history of stressors including a recent break-up with a girlfriend in September 2023 and they are still talking but have decided to not get back together. She has had the symptoms for several months and they include her mood changing multiple times a day and the mood changes generally last hours only. At times she gets a somewhat elevated mood which is also associated with getting a lot done and impulsivity and reckless behaviors. She endorses sadness, crying spells, hopelessness, worthlessness, anhedonia, increased sleep in the last week or so up to 12 hours overnight and a 4-hour nap the other day. She did have suicidal ideation several weeks ago when she went to the hospital voluntarily. Discharge Diagnoses:: 1. Bipolar disorder, NOS F31.9 2. Generalized anxiety disorder 3. Ecstasy and cocaine use disorder (sober since January 02, 2024) 4. Alcohol use disorder (sober x 2 weeks) 5. Marijuana use disorder Reason for Discharge:: Client has chosen to discontinue IOP at this time due to not wanting to commit to the 9 hours a week. Client stated she would rather do individual counseling at this time. Treatment Progress During Treatment & Response: Progress limited. Client struggled with consistent treatment attendance. Client has only attended 5 days of IOP when admitted into the program for 4 weeks. Client admitted she wasn't sure she was ready or wanting to make changes in her life. Client relapsed on cocaine in the first week of the program. Client did state she stopped using cocaine the last two weeks of IOP. Issues Still to be Addressed:: Client could benefit from distress tolerance skills, building confidence, learning healthy coping skills to manage anxiety and depression, interpersonal relationship skills, and how to set/maintain boundaries. Discharge Recommendations/Instructions:: Client recommended to start outpatient counseling. Client is established with outpatient medication provider at [facility]. Discharge Handout
== END 2024-02-28 08:44 | disposition home or self-care (01) ==
LOC: BHIOP 14:44
PROVIDERS: Referring Provider Psychiatry & Neurology Psychiatry; Visit Provider Psychiatry & Neurology Psychiatry
DX: F31.9 Bipolar disorder, unspecified (principal); F41.1 Generalized anxiety disorder; F12.91 Cannabis use, unspecified, in remission; F11.91 Opioid use, unspecified, in remission; F16.91 Hallucinogen use, unspecified, in remission; F10.91 Alcohol use, unspecified, in remission
CPT/HCPCS: S9480; 90834; 90853